=== PATIENT | female | born 1955 | race Caucasian/White ===

== ENCOUNTER 2022-01-03 10:12 | Outpatient (CLI) | payer OTHER | END 2022-01-03 10:13 | disposition home or self-care (01) | LOC: CSHLAB 10:12 | PROVIDERS: ATTEND Internal Medicine Gastroenterology | DX: Z20.822 Contact with and (suspected) exposure to COVID-19 (principal); R13.10 Dysphagia, unspecified | CPT/HCPCS: 87811 ==

== ENCOUNTER 2022-01-06 06:25 | Day surgery (SDC) | payer OTHER ==
[2022-01-04 11:09] VITALS: BMI 32.8
[2022-01-06] MEDS ORDERED: Lidocaine 1% MPF 2 ML VIAL ONE (07:31)
[2022-01-06] MEDS ORDERED: Fentanyl 100 MCG/2 ML VIAL ONE (08:20)
[2022-01-06] MEDS ORDERED: Lidocaine 2% PF 100 mg/5 ml Syringe ONE (08:20)
[2022-01-06] MEDS ORDERED: PROPOFOL 40 ML ONE (08:20)
== END 2022-01-06 09:23 | disposition home or self-care (01) ==
LOC: CSHSDC 06:25
PROVIDERS: ATTEND Internal Medicine Gastroenterology
PROC: 0DB58ZZ Excision of Esophagus, Via Natural or Artificial Opening Endoscopic (ICD-10-PCS; principal; 2022-01-06)
PROC: 0D757ZZ Dilation of Esophagus, Via Natural or Artificial Opening (ICD-10-PCS; 2022-01-06)
DX: D13.2 Benign neoplasm of duodenum (principal); K21.00 Gastro-esophageal reflux disease with esophagitis, without bleeding; I10 Essential (primary) hypertension; E78.5 Hyperlipidemia, unspecified; E66.9 Obesity, unspecified; Z68.32 Body mass index [BMI] 32.0-32.9, adult; F32.A Depression, unspecified; Z20.822 Contact with and (suspected) exposure to COVID-19; Z88.0 Allergy status to penicillin; Z79.899 Other long term (current) drug therapy
CPT/HCPCS: 36416; 88305; J2001; J2704; J3010

== ENCOUNTER 2022-12-20 23:53 | Observation (INO) | payer MEDICARE, OTHER, SELFPAY ==
[2022-12-21 00:38] LABS: #Basophils 0.1 10x3/uL (0.0-0.2); #Eosinphils 0.1 10x3/uL (0.0-0.5); #Monocytes 0.6 10x3/uL (0.0-1.1); #Neutrophils 4.4 10x3/uL (1.5-8.4); %Basophils 0.8 % (0.0-2.0); %Eosinophils 1.8 % (0.0-6.0); %Lymphocytes 34.4 % (18.0-47.0); %Monocytes 7.5 % (0.0-10.0); %Neutrophils 55.2 % (40.0-75.0); Hematocrit 42.3 % (34.9-44.5); Hemoglobin 14.2 g/dL (12.0-15.5); Mean Corpuscular HGB CONC 33.6 g/dL (32.0-36.0); Mean Corpuscular Hemoglobin 28.9 pg (27.0-33.0); Mean Platelet Volume 10.9 fl (7.4-10.4); Platelet Count 219 10x3/uL (150-450); RBC Distribution Width 14.2 % (11.5-14.5); Red Blood Cell (RBC) Count 4.92 10x6/uL (3.90-5.03)
[2022-12-21 00:53] LABS: ALT (SGPT) 10 U/L (8-55); AST (SGOT) 12 U/L (5-34); Albumin 3.8 g/dL (3.4-4.8); Alkaline Phosphatase 85 U/L (40-110); Anion Gap 14 mmol/L (10-20); BUN (Urea Nitrogen) 17 mg/dL (9.8-20.1); Bilirubin, Total 0.2 mg/dL (0.2-1.2); Calc. Creatinine Clearance 0 mL/min (70-130); Calcium 8.4 mg/dL (7.8-10.44); Carbon Dioxide 20 mmol/L (23-31); Chloride 111 mmol/L (98-107); Estimated GFR 74; Globulin 2.3 g/dL (2.4-3.5); Glucose 221 mg/dL (80-115); Potassium 4.2 mmol/L (3.5-5.1); Protein, Total 6.1 g/dL (5.8-8.1); Sodium 141 mmol/L (136-145)
[2022-12-21] MEDS ORDERED: Aspirin Chewable 81 MG TAB ONE (01:38)
[2022-12-21] MEDS ORDERED: Senokot S 8.6-50 MG TAB PO PRN ×2 (02:19→08:30)
[2022-12-21] MEDS ORDERED: HumaLOG 300 UNITS/3 ML VIAL SC PRN (02:19)
[2022-12-21] MEDS ORDERED: Glucagon 1 MG/ML KIT IM PRN (02:19)
[2022-12-21] MEDS ORDERED: Calcium Carbonate 500 MG ChewTAB PO PRN (02:19)
[2022-12-21] MEDS ORDERED: Acetaminophen 325 MG TAB PO PRN (02:19)
[2022-12-21] MEDS ORDERED: Dextrose 5% in Water 1,000 ML IV PRN (02:19)
[2022-12-21] MEDS ORDERED: Guaifenesin DM 100-10/5 ML UDCUP PO PRN (02:19)
[2022-12-21] MEDS ORDERED: Dextrose 50% Abboject 50 ML SYRINGE SLOW IVP PRN (02:19)
[2022-12-21] MEDS ORDERED: Ondansetron PF 4 MG/2 ML Vial IVP PRN (02:19)
[2022-12-21] MEDS ORDERED: Nitroglycerin 0.4 MG TAB (25 Tab Bottle) SL PRN (02:22)
[2022-12-21 03:10] VITALS: BMI 31.8
[2022-12-21 03:11] LABS: Cardiac Risk 4.9 (Less than 4.5)
[2022-12-21] MEDS ORDERED: Lisinopril 5 MG TAB PO SCH (09:00)
[2022-12-21] MEDS ORDERED: Metoprolol Tartrate 25 MG TAB ONE (09:13)
[2022-12-21] MEDS ORDERED: Lisinopril 10 MG TAB ONE (09:14)
[2022-12-21] MEDS ORDERED: Aspirin 81 mg Enteric Coated Tablet ONE (09:14)
[2022-12-21] MEDS ORDERED: Famotidine 20 MG TAB ONE (09:15)
[2022-12-21] MEDS ORDERED: Nitroglycerin 50 MG/250 ML BOT 250 ML ONE (10:30)
[2022-12-21] MEDS ORDERED: Lidocaine 1% MPF 2 ML VIAL ONE (10:30)
[2022-12-21] MEDS ORDERED: Lidocaine 1% (PF) 30 ML VIAL ONE (10:30)
[2022-12-21] MEDS ORDERED: Heparin 10,000 UNITS/ 10 ML VIAL ONE (10:31)
[2022-12-21] MEDS ORDERED: Verapamil 5 MG/2 ML VIAL ONE (10:31)
[2022-12-21] MEDS ORDERED: Sodium Chloride 0.9% 1,000 ML ONE (10:32)
[2022-12-21] MEDS ORDERED: Adenosine 6 MG/2 ML VIAL ONE (10:32)
[2022-12-21] MEDS ORDERED: Midazolam HCl 2 mg/2 ml Vial ONE (10:45)
[2022-12-21] MEDS ORDERED: fentaNYL 50 mcg/mL 1 mL Vial ONE (10:45)
[2022-12-21] MEDS: Aspirin 81 mg Enteric Coated Tablet PO SCH (10:47)
[2022-12-21] MEDS: Lantus 1000 UNITS/10 ML VIAL SC SCH (10:48)
[2022-12-21] MEDS: Famotidine 20 MG TAB PO SCH ×2 (10:48→21:10)
[2022-12-21] MEDS ORDERED: TICAGRELOR 90 MG TABLET ONE (11:34)
[2022-12-21] MEDS ORDERED: Iopamidol 300 61% 100 ML VIAL FS ONE (11:52)
[2022-12-21 13:58] LABS: Hemoglobin A1c 6.6 % (4.0-6.0)
[2022-12-21] MEDS ORDERED: Atorvastatin Calcium 40 MG TAB PO SCH (21:00)
[2022-12-21] MEDS: Sodium Chloride 0.9% 1,000 ML IV SCH (21:38)
[2022-12-22] MEDS: Sodium Chloride 0.9% 1,000 ML IV SCH ×2 (00:37→08:22)
[2022-12-22] MEDS: Metoprolol Tartrate 25 MG TAB PO SCH ×2 (00:43→08:22)
[2022-12-22 05:01] LABS: #Basophils 0.1 10x3/uL (0.0-0.2); #Eosinphils 0.1 10x3/uL (0.0-0.5); #Monocytes 0.6 10x3/uL (0.0-1.1); #Neutrophils 4.1 10x3/uL (1.5-8.4); %Basophils 0.7 % (0.0-2.0); %Eosinophils 1.9 % (0.0-6.0); %Lymphocytes 33.1 % (18.0-47.0); Hematocrit 39.9 % (34.9-44.5); Hemoglobin 13.2 g/dL (12.0-15.5); Mean Corpuscular HGB CONC 33.1 g/dL (32.0-36.0); Mean Corpuscular Hemoglobin 28.4 pg (27.0-33.0); Mean Platelet Volume 11.4 fl (7.4-10.4); Platelet Count 198 10x3/uL (150-450); RBC Distribution Width 13.8 % (11.5-14.5); Red Blood Cell (RBC) Count 4.64 10x6/uL (3.90-5.03); White Blood Cell (WBC) Count 7.3 10x3/uL (3.5-10.5)
[2022-12-22 05:16] LABS: ALT (SGPT) 10 U/L (8-55); AST (SGOT) 14 U/L (5-34); Albumin 3.3 g/dL (3.4-4.8); Alkaline Phosphatase 70 U/L (40-110); Anion Gap 13 mmol/L (10-20); BUN (Urea Nitrogen) 16 mg/dL (9.8-20.1); Bilirubin, Total 0.5 mg/dL (0.2-1.2); Calc. Creatinine Clearance 88 mL/min (70-130); Calcium 8.4 mg/dL (7.8-10.44); Carbon Dioxide 21 mmol/L (23-31); Chloride 110 mmol/L (98-107); Estimated GFR 81; Globulin 2.3 g/dL (2.4-3.5); Glucose 125 mg/dL (80-115); Potassium 3.8 mmol/L (3.5-5.1); Protein, Total 5.6 g/dL (5.8-8.1); Sodium 140 mmol/L (136-145)
[2022-12-22] MEDS: Aspirin 81 mg Enteric Coated Tablet PO SCH (08:22)
[2022-12-22] MEDS: Famotidine 20 MG TAB PO SCH (08:22)
[2022-12-22] MEDS: Lantus 1000 UNITS/10 ML VIAL SC SCH (08:23)
[2022-12-22] MEDS ORDERED: Aspirin Chewable 81 MG TAB PO SCH (09:00)
[2022-12-22] MEDS ORDERED: TICAGRELOR 90 MG TABLET PO SCH (09:00)
[2022-12-22 09:42] VITALS: BP 139/63; TEMP 97.4
== END 2022-12-22 12:03 | disposition home or self-care (01) ==
LOC: CSHERS 23:53 → CSHERHOLD 12-21 01:36 → CSHTELE 12-21 15:04
PROVIDERS: ADMIT Student in an Organized Health Care Education/Training Program; ATTEND Internal Medicine
PROC: B2050ZZ Plain Radiography of Left Heart using High Osmolar Contrast (ICD-10-PCS; principal; 2022-12-21)
PROC: B2000ZZ Plain Radiography of Single Coronary Artery using High Osmolar Contrast (ICD-10-PCS; 2022-12-21)
DX: R07.2 Precordial pain (principal); I25.110 Atherosclerotic heart disease of native coronary artery with unstable angina pectoris; R06.02 Shortness of breath; I13.0 Hypertensive heart and chronic kidney disease with heart failure and stage 1 through stage 4 chronic kidney disease, or unspecified chronic kidney disease; N18.2 Chronic kidney disease, stage 2 (mild); I50.1 Left ventricular failure, unspecified; I25.10 Atherosclerotic heart disease of native coronary artery without angina pectoris; E11.9 Type 2 diabetes mellitus without complications; E78.5 Hyperlipidemia, unspecified; Z90.710 Acquired absence of both cervix and uterus; Z90.49 Acquired absence of other specified parts of digestive tract; Z79.4 Long term (current) use of insulin; Z88.0 Allergy status to penicillin; F17.210 Nicotine dependence, cigarettes, uncomplicated; Z79.82 Long term (current) use of aspirin; Z79.899 Other long term (current) drug therapy
CPT/HCPCS: 71045; 80053 ×2; 80061; 82962 ×2; 83036; 84484 ×2; 85025 ×2; 85347; 85379; 92978; 93005 ×3; 93306; 93458; C1753; C1769; C1874; C1887; C1894; C9600; J3010; 36415; 36416; 92928; 93010; 99152; 99153; G0378; J0153; J1644; J1650; J1815; J2001; J2250; J7050; Q9967

== ENCOUNTER 2024-12-10 12:57 | Inpatient (IN) | payer MEDICARE ==
[2024-12-10 13:48] LABS: #Basophils 0.05 10x3/uL (0.0-0.2); #Eosinophils 0.07 10x3/uL (0.0-0.5); #Monocytes 0.71 10x3/uL (0.0-1.1); #Neutrophils 5.66 10x3/uL (1.5-8.4); %Basophils 0.6 % (0.0-2.0); %Eosinophils 0.9 % (0.0-6.0); %Lymphocytes 19.8 % (18.0-47.0); %Monocytes 8.7 % (0.0-10.0); %Neutrophils 69.6 % (40.0-75.0); Hematocrit 47.5 % (34.9-44.5); Hemoglobin 16.2 g/dL (12.0-15.5); Mean Corpuscular Hemoglobin 29.7 pg (27.0-33.0); Mean Corpuscular Volume 87.2 fL (81.6-98.3); Platelet Count 183 10x3/uL (150-450); Red Blood Cell (RBC) Count 5.45 10x6/uL (3.90-5.03); White Blood Cell (WBC) Count 8.13 10x3/uL (3.5-10.5)
[2024-12-10 14:20] LABS: ALT (SGPT) 11 U/L (Less than 34); AST (SGOT) 16 U/L (11-34); Albumin 3.6 g/dL (3.1-4.5); Alkaline Phosphatase 64 U/L (40-110); Anion Gap 13 mmol/L (10-20); BUN (Urea Nitrogen) 13 mg/dL (9.8-20.1); Bilirubin, Total 0.7 mg/dL (0.3-1.2); Calc. Creatinine Clearance 0 mL/min (70-130); Calcium 8.7 mg/dL (7.8-10.44); Carbon Dioxide 22 mmol/L (23-31); Chloride 108 mmol/L (98-107); Globulin 2.6 g/dL (2.4-3.5); Glucose 178 mg/dL (80-115); Potassium 4.2 mmol/L (3.5-5.1); Sodium 139 mmol/L (136-145)
[2024-12-10 14:22] LABS: Troponin I Less than 0.010 ng/mL (< 0.028)
[2024-12-10] MEDS ORDERED: Acetaminophen 325 MG TAB PO PRN (16:56)
[2024-12-10] MEDS ORDERED: Ondansetron PF 4 MG/2 ML Vial IVP PRN (16:56)
[2024-12-10] MEDS ORDERED: Melatonin 3 MG TAB PO PRN (16:56)
[2024-12-10] MEDS ORDERED: Senokot S 8.6-50 MG TAB PO PRN (16:56)
[2024-12-10 18:15] LABS: Glucose, Urine (Dipstick) Normal (Negative); Leukocyte 100 (Negative); Protein, Urine (Dipstick) 15 mg/dl (Neg-Trace); Specific Gravity, Urine 1.010 (1.005-1.030)
[2024-12-10 18:22] VITALS: BMI 29.7
[2024-12-10 18:38] LABS: Bacteria/HPF 4+ HPF (None Seen); CAUTI Indications for Culture Pelvic or flank pain; RBC/HPF None Seen HPF (0-3); WBC/HPF 0-3 HPF (0-3)
[2024-12-10 18:39] LABS: Urine Culture Reflex No No
[2024-12-10] MEDS ORDERED: cefTRIAXone\\ROCEPHIN 1 GM in Sodium Chloride 0.9% 100 ML IVPB SCH (19:30)
[2024-12-10] MEDS: ALPRAZolam 0.5 MG TAB PO PRN (21:16)
[2024-12-10 22:39] LABS: Troponin I Less than 0.010 ng/mL (< 0.028)
[2024-12-11 03:05] LABS: Troponin I Less than 0.010 ng/mL (< 0.028)
[2024-12-11 05:10] LABS: #Basophils 0.05 10x3/uL (0.0-0.2); #Eosinophils 0.13 10x3/uL (0.0-0.5); #Monocytes 0.61 10x3/uL (0.0-1.1); #Neutrophils 3.62 10x3/uL (1.5-8.4); %Basophils 0.7 % (0.0-2.0); %Eosinophils 1.9 % (0.0-6.0); %Lymphocytes 34.0 % (18.0-47.0); %Monocytes 9.1 % (0.0-10.0); %Neutrophils 54.0 % (40.0-75.0); Hematocrit 43.8 % (34.9-44.5); Hemoglobin 14.3 g/dL (12.0-15.5); Mean Corpuscular Hemoglobin 28.8 pg (27.0-33.0); Mean Corpuscular Volume 88.3 fL (81.6-98.3); Platelet Count 161 10x3/uL (150-450); Red Blood Cell (RBC) Count 4.96 10x6/uL (3.90-5.03); White Blood Cell (WBC) Count 6.71 10x3/uL (3.5-10.5)
[2024-12-11 05:19] LABS: Anion Gap 11 mmol/L (10-20); BUN (Urea Nitrogen) 14 mg/dL (9.8-20.1); Calc. Creatinine Clearance 92 mL/min (70-130); Calcium 8.2 mg/dL (7.8-10.44); Carbon Dioxide 21 mmol/L (23-31); Chloride 111 mmol/L (98-107); Glucose 132 mg/dL (80-115); Potassium 3.8 mmol/L (3.5-5.1); Sodium 139 mmol/L (136-145)
[2024-12-11] MEDS: Pantoprazole 40 MG DR.TAB PO SCH (08:44)
[2024-12-11] MEDS: Sertraline 25 MG TAB PO SCH (08:44)
[2024-12-11] MEDS: Aspirin Chewable 81 MG TAB PO SCH (08:44)
[2024-12-11 11:51] LABS: Free T4 (Free Thyroxine) 1.05 ng/dL (0.70-1.48); Thyroid Stimulating Hormone 1.6032 uIU/mL (0.35-4.94)
[2024-12-11 14:21] VITALS: BMI 29.7
[2024-12-11 20:00] VITALS: TEMP 97.6
[2024-12-12 05:03] LABS: #Basophils 0.04 10x3/uL (0.0-0.2); #Eosinophils 0.11 10x3/uL (0.0-0.5); #Monocytes 0.46 10x3/uL (0.0-1.1); #Neutrophils 2.98 10x3/uL (1.5-8.4); %Basophils 0.7 % (0.0-2.0); %Eosinophils 1.8 % (0.0-6.0); %Lymphocytes 40.3 % (18.0-47.0); %Monocytes 7.6 % (0.0-10.0); %Neutrophils 49.4 % (40.0-75.0); Hematocrit 44.1 % (34.9-44.5); Hemoglobin 14.3 g/dL (12.0-15.5); Mean Corpuscular Hemoglobin 28.5 pg (27.0-33.0); Mean Corpuscular Volume 88.0 fL (81.6-98.3); Platelet Count 159 10x3/uL (150-450); Red Blood Cell (RBC) Count 5.01 10x6/uL (3.90-5.03); White Blood Cell (WBC) Count 6.03 10x3/uL (3.5-10.5)
[2024-12-12 05:17] LABS: Anion Gap 10 mmol/L (10-20); BUN (Urea Nitrogen) 11 mg/dL (9.8-20.1); Calc. Creatinine Clearance 87 mL/min (70-130); Calcium 8.1 mg/dL (7.8-10.44); Carbon Dioxide 21 mmol/L (23-31); Chloride 112 mmol/L (98-107); Glucose 149 mg/dL (80-115); Potassium 3.9 mmol/L (3.5-5.1); Sodium 139 mmol/L (136-145)
[2024-12-12 12:17] VITALS: BP 120/61
== END 2024-12-12 13:29 | disposition home or self-care (01) | DRG 312 ==
LOC: CSHERS 12:57 → CSHTELE 16:58 → OBSVTOIN 12-11 14:33
PROVIDERS: ADMIT Internal Medicine; ATTEND Internal Medicine
DX: R55 Syncope and collapse (principal); I49.3 Ventricular premature depolarization; E78.5 Hyperlipidemia, unspecified; E11.9 Type 2 diabetes mellitus without complications; I10 Essential (primary) hypertension; I25.10 Atherosclerotic heart disease of native coronary artery without angina pectoris; J43.9 Emphysema, unspecified; F03.90 Unspecified dementia, unspecified severity, without behavioral disturbance, psychotic disturbance, mood disturbance, and anxiety; R07.9 Chest pain, unspecified; I49.1 Atrial premature depolarization; Z85.42 Personal history of malignant neoplasm of other parts of uterus; Z98.890 Other specified postprocedural states; Z90.49 Acquired absence of other specified parts of digestive tract; Z98.84 Bariatric surgery status; Z95.5 Presence of coronary angioplasty implant and graft; Z87.891 Personal history of nicotine dependence; Z90.710 Acquired absence of both cervix and uterus; Z88.0 Allergy status to penicillin
CPT/HCPCS: 36415; 36416; 70450; 71045; 72125; 80048; 80053; 81001; 84439; 84443; 84479; 84484; 85025; 93005; 93306; G0378; J7030

== ENCOUNTER 2025-02-05 15:29 | Emergency (ER) | payer MEDICARE, OTHER ==
[2025-02-05 16:20] LABS: #Basophils 0.07 10x3/uL (0.0-0.2); #Eosinophils 0.12 10x3/uL (0.0-0.5); #Monocytes 0.74 10x3/uL (0.0-1.1); #Neutrophils 4.32 10x3/uL (1.5-8.4); %Basophils 0.9 % (0.0-2.0); %Eosinophils 1.5 % (0.0-6.0); %Lymphocytes 32.7 % (18.0-47.0); %Monocytes 9.4 % (0.0-10.0); %Neutrophils 55.1 % (40.0-75.0); Hematocrit 43.3 % (34.9-44.5); Hemoglobin 14.6 g/dL (12.0-15.5); Mean Corpuscular Hemoglobin 29.1 pg (27.0-33.0); Mean Corpuscular Volume 86.4 fL (81.6-98.3); Platelet Count 176 10x3/uL (150-450); Red Blood Cell (RBC) Count 5.01 10x6/uL (3.90-5.03); White Blood Cell (WBC) Count 7.84 10x3/uL (3.5-10.5)
[2025-02-05 16:53] LABS: Troponin I 0.013 ng/mL (< 0.028)
[2025-02-05 16:54] LABS: ALT (SGPT) 15 U/L (Less than 34); AST (SGOT) 13 U/L (11-34); Albumin 3.4 g/dL (3.1-4.5); Alkaline Phosphatase 76 U/L (40-110); Anion Gap 14 mmol/L (10-20); BUN (Urea Nitrogen) 21 mg/dL (9.8-20.1); Bilirubin, Total 0.2 mg/dL (0.3-1.2); Calc. Creatinine Clearance 0 mL/min (70-130); Calcium 8.6 mg/dL (7.8-10.44); Carbon Dioxide 23 mmol/L (23-31); Chloride 109 mmol/L (98-107); Globulin 2.5 g/dL (2.4-3.5); Glucose 303 mg/dL (80-115); Potassium 4.5 mmol/L (3.5-5.1); Sodium 141 mmol/L (136-145)
== END 2025-02-05 17:43 | disposition home or self-care (01) ==
LOC: CSHERS 15:29
DX: R07.89 Other chest pain (principal); M94.0 Chondrocostal junction syndrome [Tietze]; R10.9 Unspecified abdominal pain; I10 Essential (primary) hypertension; E11.9 Type 2 diabetes mellitus without complications; E78.00 Pure hypercholesterolemia, unspecified; Z79.82 Long term (current) use of aspirin; Z79.899 Other long term (current) drug therapy
CPT/HCPCS: 36415; 71045; 80053; 84484; 85025; 93005